=== PATIENT | female | born 1975 | race Caucasian/White ===

== ENCOUNTER → 2017-08-18 | Outpatient (CLI) | payer OTHER ==
[~2017-08-18] MED LIST: OPTIRAY 320 IV PRN
--- NOTE | 2017-08-18 11:02 | DIAGNOSTIC IMAGING REPORT ---
ABDOMEN AND PELVIS CT WITH IV AND ORAL CONTRAST CT DOSE: 2033.85 mGy.cm HISTORY: Acute right upper quadrant abdominal pain with nausea. Prior cholecystectomy. RUQ PAIN, NAUSEA, CHANGE IN BOWEL HABITS TECHNIQUE: Multiaxial CT images of the abdomen and pelvis were performed following the use of intravenous and oral contrast. A dose lowering technique was utilized adhering to the principles of ALARA. COMPARISON STUDY: None. FINDINGS: The heart and imaged lung bases are unremarkable. Mild dependent subsegmental bibasilar atelectasis with moderate right hemidiaphragmatic elevation. Solid 4 mm nodule of the lateral basal segment left lower lobe. Additional 2 mm solid nodule of the left lung base is noted. Statistically, these favor benign etiology. No pneumatosis or pneumoperitoneum. There is suggested fatty infiltration of the liver. Prior cholecystectomy. The spleen, pancreas and adrenal glands are within normal limits. 9 mm circumscribed water attenuating lesion of the anterior interpolar right kidney suggests renal cyst. No renal calculi or obstructive uropathy. Bladder is unremarkable. Intrauterine device appears to protrude positioned within the mid and fundal uterus. 3.0 x 2.4 cm cystic structure about the left adnexum. Right adnexum is unremarkable. Aorta appears normal. The IVC is also within normal limits. No pathologic adenopathy identified. There is no bowel obstruction or focal bowel wall thickening identified. Appendix appears normal. No ascites or mesenteric inflammatory changes. Fat filled periumbilical hernia, diastases 2.4 cm. Osteitis condensans ilii. Moderate discogenic degenerative changes at L5-S1 with posterior disc osteophyte complex formation seen at several levels. IMPRESSION: 1. No acute intra-abdominal or intrapelvic abnormality identified. Normal appendix. 2. Suspected hepatic steatosis. 3. Prior cholecystectomy. 4. IUD in situ. 5. 3.0 x 2.4 cm left adnexal cyst. 6. Small fat filled periumbilical hernia. Electronically signed by: Lucian Aranda M.D. 08/18/2017 11:00 AM Dictated Date/Time: 08/18/2017 10:52 AM
== END | disposition home or self-care (01) ==
LOC: C.CTS 09:55
PROVIDERS: ATTEND Registered Nurse
DX: N83.8 Other noninflammatory disorders of ovary, fallopian tube and broad ligament (principal); R11.0 Nausea; R19.4 Change in bowel habit; R10.11 Right upper quadrant pain